=== PATIENT | female | born 1990 | race African-American/Black ===

== ENCOUNTER 2019-12-31 16:07 | Inpatient (IN) ==
[2019-12-31 16:57] LABS: Basophils % 0.1 % (0.0-0.8); Eosinophils # 0.1 10*3/uL (0.0-0.87); Eosinophils % 0.5 % (0.00-10.9); Hematocrit 36.5 VOL% (35.7-47.0); Hemoglobin 12.2 GM/DL (12.0-16.0); Immature Granulocytes % 1.2 %; Immature Granulocytes Absolute 0.11 #; Lymphocytes # 1.1 10*3/uL (1.4-4.0); Lymphocytes % 11.6 % (21.3-54.2); Mean Corpuscular HGB Conc 33.4 GM/DL (32-36); Mean Corpuscular Volume 83.5 FL (87-102); Mean Platelet Volume 9.8 FL (9.6-12.0); Monocytes % 8.1 % (1.7-12.7); Neutrophils % 78.5 % (38.7-73.9); Platelet Count 279 T/CUMM (130-400); Red Blood Count 4.37 MC/CUMM (3.8-5.5); Red Cell Distribution Width 15.3 % (9.3-17.3); White Blood Count 9.6 T/CUMM (4-12)
[2019-12-31] MEDS ORDERED: ONDANSETRON 4 MG/2 ML VIAL IV PRN (17:04)
[2019-12-31] MEDS ORDERED: hydrALAZINE 20 MG/1 ML VIAL IV PRN (17:04)
[2019-12-31] MEDS ORDERED: MAGNESIUM SULF RIDER 4 GM in PREMIX 1 EACH IV ONE (17:04)
[2019-12-31 17:15] LABS: Alanine Aminotransferase 32 U/L (13-56); Albumin 2.6 G/DL (3.4-5.0); Alkaline Phosphatase 75 U/L (45-117); Aspartate Amino Transferase 22 U/L (0-37); Bilirubin,Direct < 0.100 MG/DL (0.0-0.20); Bilirubin,Total < 0.39 MG/DL (0.2-1.0); Blood Urea Nitrogen 5 MG/DL (7-18); Estimated Glom Filtration Rate 148 ML/MIN; Glucose 108 MG/DL (74-106); Total Protein 7.1 G/DL (6.4-8.3); Uric Acid 4.5 MG/DL (2.6-6.0)
[2019-12-31] MEDS: LACTATED RINGERS 1,000 ML IV SCH (17:16)
[2019-12-31 17:22] LABS: INR 0.9; PT Patient Result 9.9 SECS (9.8-11.9); Partial Thromboplastin Time 24.4 SECS (23.9-33.8)
[2019-12-31] MEDS: BETAMETH SODIUM PHOS/ACETATE 30 MG/5 ML VIAL IM SCH (17:27)
[2019-12-31 17:35] LABS: Apearance,Urine CLOUDY (Clear); Bacteria,Urine Many /HPF (Few); Bilirubin,Urine Negative (Negative); Blood, Urine Negative (Negative); Glucose,Urine (UA) Negative (Negative); Ketones,Urine Negative (Negative); Mucus,Urine Few /LPF (Occasional); Nitrite,Urine Negative (Negative); Protein,Urine Negative; RBC,Urine 6 /HPF (0-4); Squamous Epithelial Cell,Urine Moderate /HPF (0-10); Urine Color Yellow (Yellow); Urine Specific Gravity 1.013 (1.001-1.035); Urine Urobilinogen < 2.0 EU/DL (0.2-1.0); WBC,Urine 5 /HPF (0-6)
[2019-12-31] MEDS: MAGNESIUM SULF DRIP 40 GM/1,000 ML ML IV SCH (17:54)
[2020-01-01] MEDS: LACTATED RINGERS 1,000 ML IV SCH ×2 (04:34→17:36)
[2020-01-01] MEDS: MAGNESIUM SULF DRIP 40 GM/1,000 ML ML IV SCH (13:56)
[2020-01-01] MEDS: BETAMETH SODIUM PHOS/ACETATE 30 MG/5 ML VIAL IM SCH (17:32)
[2020-01-01 20:23] LABS: Total Protein 24 Hr Ur Result 689 MG/24HR (0-149.1); Total Volume,Urine 5300 ML (400-2000)
== END 2020-01-01 21:50 | disposition home or self-care (01) | DRG 831 ==
LOC: N.LDOUT 16:07 → N.LD 16:09
PROVIDERS: ADMIT Obstetrics & Gynecology; ATTEND Obstetrics & Gynecology

== ENCOUNTER 2020-02-11 18:40 | Inpatient (IN) ==
[2020-02-11] MEDS ORDERED: LACTATED RINGERS 1,000 ML IV SCH (20:30)
[2020-02-11 21:23] LABS: Apearance,Urine Slightly Hazy (Clear); Bilirubin,Urine Negative (Negative); Blood, Urine Negative (Negative); Glucose,Urine (UA) >=500 mg/dL (Negative); Ketones,Urine 5 mg/dL (Negative); Mucus,Urine Occasional /LPF (Occasional); Nitrite,Urine Negative (Negative); Protein,Urine Negative; RBC,Urine 2 /HPF (0-4); Squamous Epithelial Cell,Urine Occasional /HPF (0-10); Urine Color Yellow (Yellow); Urine Urobilinogen < 2.0 EU/DL (0.2-1.0); WBC,Urine 1 /HPF (0-6)
[2020-02-11] MEDS ORDERED: ONDANSETRON 4 MG/2 ML VIAL IV PRN (21:58)
[2020-02-11] MEDS ORDERED: LACTATED RINGERS 1,000 ML IV ONE (21:58)
[2020-02-11] MEDS ORDERED: LACTATED RINGERS 500 ML IV PRN (21:58)
[2020-02-11] MEDS ORDERED: CITRIC ACID/SODIUM CITRATE 30 ML UDCUP PO ONE (22:02)
[2020-02-11] MEDS ORDERED: ONDANSETRON 4 MG/2 ML VIAL IV ONE (22:02)
[2020-02-11] MEDS ORDERED: PROMETHAZINE 25 MG/1 ML VIAL IM ONE (22:02)
[2020-02-11] MEDS ORDERED: FAMOTIDINE 20 MG/2 ML VIAL IV ONE (22:02)
[2020-02-11] MEDS ORDERED: ePHEDrine 50 MG/ML VIAL IV PRN (22:02)
[2020-02-11] MEDS ORDERED: diphenhydrAMINE 50 MG/1 ML VIAL IV PRN ×2 (22:02)
[2020-02-11] MEDS ORDERED: hydrOXYzine HCL 25 MG/1 ML VIAL IM PRN (22:02)
[2020-02-11] MEDS ORDERED: OXYTOCIN/LR 20 UNIT/1,000 ML BAG IV ONE ×2 (22:17→22:43)
[2020-02-11] MEDS: LACTATED RINGERS 1,000 ML IV SCH (22:22)
[2020-02-11] MEDS ORDERED: ceFAZolin 3,000 MG in SYRINGE 1 EACH IV SCH (22:30)
[2020-02-11 22:38] LABS: Basophils % 0.2 % (0.0-0.8); Eosinophils % 0.1 % (0.00-10.9); Hematocrit 33.9 VOL% (35.7-47.0); Hemoglobin 10.9 GM/DL (12.0-16.0); Immature Granulocytes % 5.4 %; Immature Granulocytes Absolute 0.61 #; Lymphocytes # 1.1 10*3/uL (1.4-4.0); Lymphocytes % 9.3 % (21.3-54.2); Mean Corpuscular HGB Conc 32.2 GM/DL (32-36); Mean Corpuscular Volume 84.1 FL (87-102); Mean Platelet Volume 9.8 FL (9.6-12.0); Monocytes % 10.3 % (1.7-12.7); NRBC # 0.08 10*3/uL; Neutrophils % 74.7 % (38.7-73.9); Platelet Count 312 T/CUMM (130-400); Red Blood Count 4.03 MC/CUMM (3.8-5.5); Red Cell Distribution Width 15.9 % (9.3-17.3); White Blood Count 11.4 T/CUMM (4-12)
[2020-02-11] MEDS ORDERED: TRANEXAMIC ACID 1,000 MG/10 ML VIAL ONE (22:42)
[2020-02-11] MEDS ORDERED: miSOPROStoL 200 MCG TABLET ONE (22:42)
[2020-02-11] MEDS ORDERED: CARBOPROST TROMETHAMINE 250 MCG/ML AMP IM ONE (22:43)
[2020-02-11] MEDS ORDERED: METHYLERGONOVINE 0.2 MG/1 ML AMP ONE (22:43)
[2020-02-11] MEDS ORDERED: METOCLOPRAMIDE 10 MG/2 ML VIAL ONE (22:53)
[2020-02-11 23:07] LABS: Alanine Aminotransferase 59 U/L (13-56); Albumin 2.3 G/DL (3.4-5.0); Alkaline Phosphatase 83 U/L (45-117); Aspartate Amino Transferase 46 U/L (0-37); Bilirubin,Total < 0.39 MG/DL (0.2-1.0); Blood Urea Nitrogen 9 MG/DL (7-18); Calcium 8.8 MG/DL (8.5-10.1); Estimated Glom Filtration Rate 155 ML/MIN; Glucose 178 MG/DL (74-106); Total Protein 6.3 G/DL (6.4-8.3)
[2020-02-11 23:18] LABS: Lymphocytes 9 % (20-55); Nucleated Red Blood Cells 2 (0-5); Segmented Neutrophils 83 % (50-85); Total Cells Counted 100
[2020-02-11 23:21] LABS: Anisocytosis 1+; Ovalocytes Few; Platelet Estimate Normal
[2020-02-12] MEDS ORDERED: OXYTOCIN/LR 20 UNIT/1,000 ML BAG IV ONE (00:06)
[2020-02-12] MEDS ORDERED: ACETAMINOPHEN 325 MG TABLET PO PRN (00:06)
[2020-02-12] MEDS ORDERED: RHO(D) IMMUNE GLOBULIN 300 MCG SYRINGE IM ONE (00:06)
[2020-02-12] MEDS ORDERED: ONDANSETRON 4 MG/2 ML VIAL IV PRN (00:06)
[2020-02-12] MEDS ORDERED: SIMETHICONE CHEW 80 MG TABLET PO PRN (00:06)
[2020-02-12 00:10] LABS: Cord Venous Blood HCO3 24.5 MMOL/L; Cord Venous Blood PCO2 55.9 MMHG; Cord Venous Blood PO2 29.4
[2020-02-12] MEDS ORDERED: propofoL 200 MG/20 ML VIAL IV ONE (00:21)
[2020-02-12] MEDS ORDERED: LACTATED RINGERS 1,000 ML IV ONE (00:22)
[2020-02-12] MEDS ORDERED: FUROSEMIDE 20 MG/2 ML VIAL ONE (00:22)
[2020-02-12] MEDS ORDERED: KETOROLAC 30 MG/1 ML VIAL ONE (00:22)
[2020-02-12] MEDS ORDERED: LABETALOL 20 MG/4 ML SYRINGE IV ONE (00:22)
[2020-02-12] MEDS ORDERED: ONDANSETRON 4 MG/2 ML VIAL ONE (00:22)
[2020-02-12] MEDS ORDERED: BUPIVACAINE SPINAL 0.75% 2 ML AMP SPINAL ONE (00:22)
[2020-02-12] MEDS ORDERED: MORPHINE 10 MG/10 ML VIAL ONE (00:22)
[2020-02-12] MEDS ORDERED: LACTATED RINGERS 1,000 ML IV SCH (00:30)
[2020-02-12] MEDS: HYDROmorphone 2 MG/1 ML VIAL IV PRN ×2 (00:44→04:07)
[2020-02-12 00:53] LABS: Apearance,Urine CLEAR (Clear); Bacteria,Urine Occasional /HPF (Few); Bilirubin,Urine Negative (Negative); Blood, Urine Negative (Negative); Calcium Oxalate Crystals,Urine Occasional /HPF (Few); Glucose,Urine (UA) 50 mg/dL (Negative); Ketones,Urine Negative (Negative); Mucus,Urine Occasional /LPF (Occasional); Nitrite,Urine Negative (Negative); Protein,Urine Negative; RBC,Urine <1 /HPF (0-4); Squamous Epithelial Cell,Urine Occasional /HPF (0-10); Urine Color Yellow (Yellow); Urine Specific Gravity 1.012 (1.001-1.035); Urine Urobilinogen < 2.0 EU/DL (0.2-1.0); WBC,Urine <1 /HPF (0-6)
[2020-02-12] MEDS ORDERED: MAGNESIUM SULF RIDER 4 GM in PREMIX 1 EACH IV ONE (01:19)
[2020-02-12] MEDS ORDERED: MAGNESIUM SULF DRIP 40 GM/1,000 ML ML IV SCH (01:30)
[2020-02-12] MEDS: hydrALAZINE 20 MG/1 ML VIAL IV PRN ×2 (01:34→10:16)
[2020-02-12] MEDS: LACTATED RINGERS 1,000 ML IV SCH (06:06)
[2020-02-12] MEDS: ceFAZolin 1,000 MG in SYRINGE 1 EACH IV SCH ×2 (08:53→16:04)
[2020-02-12] MEDS: MULTIVITAMIN (PRENATAL) TABLET PO SCH (10:18)
[2020-02-12] MEDS: DOCUSATE SODIUM 100 MG CAPSULE PO SCH ×2 (10:19→22:00)
[2020-02-12] MEDS ORDERED: LABETALOL 200 MG TABLET PO SCH (12:00)
[2020-02-12 14:00] LABS: Basophils % 0.1 % (0.0-0.8); Hematocrit 25.7 VOL% (35.7-47.0); Hemoglobin 8.2 GM/DL (12.0-16.0); Immature Granulocytes % 1.5 %; Immature Granulocytes Absolute 0.21 #; Lymphocytes # 1.1 10*3/uL (1.4-4.0); Lymphocytes % 7.9 % (21.3-54.2); Mean Corpuscular HGB Conc 31.9 GM/DL (32-36); Mean Corpuscular Volume 82.9 FL (87-102); Mean Platelet Volume 9.6 FL (9.6-12.0); NRBC # 0.09 10*3/uL; Neutrophils % 83.5 % (38.7-73.9); Platelet Count 277 T/CUMM (130-400); White Blood Count 13.8 T/CUMM (4-12)
[2020-02-12] MEDS: LABETALOL 100 MG TABLET PO SCH (22:00)
[2020-02-13] MEDS: IBUPROFEN 800 MG TABLET PO PRN (04:24)
[2020-02-13] MEDS: LABETALOL 100 MG TABLET PO SCH ×3 (06:04→22:18)
[2020-02-13] MEDS: DOCUSATE SODIUM 100 MG CAPSULE PO SCH ×2 (08:44→19:54)
[2020-02-13] MEDS: MULTIVITAMIN (PRENATAL) TABLET PO SCH (08:44)
[2020-02-13] MEDS: MAGNESIUM HYDROXIDE SUSP 30 ML UDCUP PO PRN (19:54)
[2020-02-14] MEDS: IBUPROFEN 800 MG TABLET PO PRN (04:49)
[2020-02-14] MEDS: LABETALOL 100 MG TABLET PO SCH (06:21)
[2020-02-14 08:02] VITALS: BP 122/71
[2020-02-14] MEDS: DOCUSATE SODIUM 100 MG CAPSULE PO SCH (09:21)
[2020-02-14] MEDS: MULTIVITAMIN (PRENATAL) TABLET PO SCH (09:21)
[2020-02-14] MEDS: MAGNESIUM HYDROXIDE SUSP 30 ML UDCUP PO PRN (09:21)
[2020-02-14] MEDS ORDERED: DIPH/TET/ACEL PERT BOOSTER VACCINE 0.5 ML VIAL IM ONE (10:43)
== END 2020-02-14 11:50 | disposition home or self-care (01) | DRG 788 ==
LOC: N.LDOUT 18:40 → N.LD 18:44 → N.OB 02-13 03:11
PROVIDERS: ADMIT Obstetrics & Gynecology; ATTEND Obstetrics & Gynecology
PROC: LDCSECT (ICD-10-PCS; 2020-02-11 23:30)